=== PATIENT | female | born 1990 | race Caucasian/White ===

== ENCOUNTER → 2016-10-28 | Outpatient (REF) | payer OTHER ==
[~2016-10-28] MED LIST: ACET50TA PO; ANUS2.5C2 EXT; DOCU10ELUD PO; IBUP600T26 PO; MOM30SS PO; PRENTAB74 PO
== END ==
LOC: M SFHCCLAY 09:35
PROVIDERS: ATTEND Family Medicine
DX: Z72.51 High risk heterosexual behavior (principal); Z01.419 Encounter for gynecological examination (general) (routine) without abnormal findings

== ENCOUNTER → 2016-12-28 | Outpatient (REF) | payer MEDICAID, OTHER ==
[2017-01-02 14:10] LABS: BENZODIAZEPINES, URINE SCREEN Negative ng/mL (Cutoff=200); METHADONE, URINE SCREEN Negative ng/mL (Cutoff=300); pH, URINE 5.9 (4.5-8.9)
== END ==
LOC: M SFHCCLAY 13:10
PROVIDERS: ATTEND Family Medicine
DX: F90.0 Attention-deficit hyperactivity disorder, predominantly inattentive type (principal)

== ENCOUNTER → 2017-03-22 | Outpatient (CLI) | payer OTHER ==
--- NOTE | 2017-03-23 08:16 | REP ---
First trimester obstetric ultrasound for viability and dating: The bladder is adequately distended. There is an intrauterine gestational sac with a pole. The heart rate is 169 beats per minute. The pole crown-rump length is 2.4 cm corresponding to 9 weeks 1 day gestational age. The JEWEL is 10/24/2017. The right and left ovaries are unremarkable. There is no free fluid in the pelvis. No subchorionic hematoma is identified. Signed by Rustam Up MD 03/23/2017 08:08 A
== END ==
LOC: M RAD 17:58
PROVIDERS: ATTEND Nurse Practitioner Women's Health
DX: Z36.2 Encounter for other antenatal screening follow-up (principal)

== ENCOUNTER 2019-10-08 20:35 | Day surgery (SDC) | payer OTHER ==
[~2019-10-08] VITALS: Ht 170.2 cm; Wt 76.5 kg
[2019-10-08 20:32] VITALS: BP 140/80
[~2019-10-08 20:35] MED LIST changes: -ACET50TA PO; -DOCU10ELUD PO; +DOCU5LIQ PO; +LR 1,000 ML IV SCH; +MAPA500T17 PO
[2019-10-08] MEDS ORDERED: ADDE15CA3 PO (21:37)
[2019-10-08] MEDS ORDERED: LIDOCAINE 1% SDV 30ML VIAL As Ordered ONE (21:57)
[2019-10-08] MEDS ORDERED: BUPIVACAINE HCL 0.25% 30ML VIAL As Ordered ONE (21:57)
--- NOTE | 2019-10-08 22:08 | HPEPDOC ---
General Surgery H&P Date of Admission October 08, 2019 Attending Physician: ARTEM EPPS MD History and Physical CHIEF COMPLAINT: abdominal pain HISTORY OF PRESENT ILLNESS: Healthy 29 F transferred from [facility] where she presented this afternoon with sudden onset of right sided abdominal pain for 2 days. Pain began yesterday and has worsened today. Reports sharp, constant pain at the right lower quadrant area and painful urination. Not relieved with tylenol. LMP 3 weeks ago. Patient reports 1 loose stool this morning, denies fevers or chills, or sick contacts. ALLERGIES: Please see below. HOME MEDICATIONS: Please see below. PAST MEDICAL HISTORY: 1. ADHD PAST SURGICAL HISTORY: none PERSONAL/SOCIAL HISTORY: Denies smoking, alcohol use, or recreational drug use. REVIEW OF SYSTEMS: GENERAL: Denies chills, fatigue, fever, weight gain and weight loss. HEENT: Denies blurred vision and double vision. Denies ear symptoms. Denies hoarseness. NECK: Denies any neck pain. CARDIOVASCULAR: Denies chest pain and palpitations. MUSCULOSKELETAL: Denies arthralgias, back pain and thrombophlebitis. SKIN: Denies rash. NEUROLOGIC: Denies headache, stroke and transient ischemic attack. PSYCHIATRIC: reports hsitory of depression, ADHD on meds. ENDOCRINE: Denies thyroid disease. HEMATOLOGY/ONCOLOGY: Denies any bleeding or clotting disorder. HEART: Denies any chest pains, palpitations, paroxysmal dyspnea, orthopnea. PULMONARY: Denies chronic cough, dyspnea and wheezing. GASTROINTESTINAL: see HPI. GENITOURINARY: reports dysuria. ENDOCRINE: Denies polydipsia, polyphagia, polyuria, heat or cold intolerance. INFECTIOUS: Denies any recent upper respiratory tract infection, UTI, need for use of antibiotics. NUTRITION: reports fair appetite. PHYSICAL EXAMINATION: VITAL SIGNS: Please see below. GENERAL APPEARANCE: looks mildly uncomfortable. Awake, alert, oriented. HEENT: Normocephalic, atraumatic. [place] palpebral conjunctivae. Anicteric sclera e. Lips moist. CHEST: No chest wall abnormalities. Normal respiratory motion/effort. NECK: Supple. No thyromegaly. No lymphadenopathies. LUNGS: Lung sounds are clear to auscultation bilaterally. No wheezing appreciated. HEART: No chest wall abnormalities. Heart rate and rhythm are regular with no murmurs. ABDOMEN: soft abdomen, nondistended, no umbilical or groin herniations, no surgical scars, tender over right lower quadrant area, referred tenderness over left lower quadrant area, nontender at upper abdomen. SKIN: Warm, moist. EXTREMITIES: Extremities have no deformities. No edema identified. NEUROLOGICAL: awake, alert, oriented. ANCILLARIES: . LABORATORY DATA: Please see below. WBC 76.1 Hgb 13 Hct 39.6 plt 234 BUN 12 Cr 0.8 LFTs normal U/A 1+ LE, WBC none, RBC none B hcg negative MICROBIOLOGY: Please see below. IMAGING: CT abdomen and pelvis early acute appendicitis IMPRESSION AND PLAN: Acute Appendicitis Patient's clinical history, examination and workup consistent with acute appendicitis, appears noncomplicated on CT, no signs of generalized peritonitis or severe inflammatory response. She was counseled on the risks and benefits of appendectomy which should shorten her clinical course. She will be tested for COVID prior to bringing her down to the or per our protocol. Consent has been obtained. She received a dose of zosyn 3.375 gm IV at [facility]. Since t his seems uncomplicated appendicitis, I will maintain her on unasyn 3 gm iv perioperatively while awaiting availability of the OR. Vital Signs 98.2 86 112/82 99% rm air Home Medications Scheduled Dextroamphetamine/Amphetamine (Adderall Xr 15 mg Capsule) 15 Mg Cap.er.24h, 15 MG PO 5XW, (Reported) M-F Allergies Coded Allergies: No Known Allergies (Unverified , 10/08/19) A-FIB/CHADSVASC A-FIB History Current/History of A-Fib/PAF?: No Current PO Anticoag Therapy: No ARTEM EPPS MD October 08, 2019 21:27
[2019-10-08 22:27] VITALS: BP 130/66
[2019-10-08] MEDS ORDERED: ONDANSETRON 4MG/2ML VIAL As Ordered ONE (22:53)
[2019-10-08] MEDS ORDERED: dexameTHASONE 4 MG/ML 1ML VIAL (J1100 PER 1MG) As Ordered ONE (22:53)
[2019-10-08] MEDS ORDERED: LIDOCAINE 2% 100MG/5ML SDV (FOR ANES.) As Ordered ONE (22:53)
[2019-10-08] MEDS ORDERED: fentaNYL 100 MCG/2 ML INJECTION (J3010) As Ordered ONE ×2 (22:53→23:44)
[2019-10-08] MEDS ORDERED: MIDAZOLAM INJ 2MG/2ML VIAL (J2250 PER 1MG) As Ordered ONE (22:53)
[2019-10-08] MEDS ORDERED: ROCURONIUM BROMIDE 50 MG/5 ML VIAL As Ordered ONE (22:53)
[2019-10-08] MEDS ORDERED: propofoL 200 MG/20 ML VIAL As Ordered ONE (22:59)
[2019-10-08] MEDS ORDERED: UNASYN 1.5 GM VIAL As Ordered ONE (23:26)
[2019-10-08] MEDS ORDERED: ACETAMINOPHEN 1000MG 100ML IV BTL (OFIRMEV) (J0131 PER 10MG) As Ordered ONE (23:31)
[2019-10-08] MEDS ORDERED: KETOROLAC 60 MG/2 ML VIAL As Ordered ONE (23:37)
[2019-10-08] MEDS ORDERED: SUGAMMADEX SODIUM 500 MG/5 ML VIAL (BRIDION) As Ordered ONE (23:37)
[2019-10-09] VITALS (8 sets, daily range): BP systolic 105–140; BP diastolic 55–79
--- NOTE | 2019-10-09 00:13 | POST-OPPD ---
Postoperative Procedure Note Date Of Procedure: October 09, 2019 PREOPERATIVE DIAGNOSIS: Acute Appendicitis POSTOPERATIVE DIAGNOSIS: Acute Appendicitis FINDINGS: distended, mildly thickened appendix, congested, no perforation PROCEDURE: Laparoscopic Appendectomy SURGEON: Mario Presley MD VISE HAND: ANESTHESIA: General Anesthesia SPECIMENS: appendix ESTIMATED BLOOD LOSS: 10 mLs DRAINS: none COMPLICATIONS: none POSTOPERATIVE CONDITION: stable, extubated to PACU MARIO PRESLEY MD October 09, 2019 00:13
--- NOTE | 2019-10-09 00:13 | ROOPDOC ---
[facility] Report Of Operation Report of Operation DATE OF PROCEDURE: 10/08/19 PREOPERATIVE DIAGNOSIS: Acute Appendicitis POSTOPERATIVE DIAGNOSIS: Acute Appendicitis FINDINGS: distended, mildly thickened appendix, congested, no perforation PROCEDURE: Laparoscopic Appendectomy SURGEON: Mario Presley MD RADIOLOGY TRANSPORTER: ANESTHESIA: General Anesthesia SPECIMENS: appendix ESTIMATED BLOOD LOSS: 10 mLs DRAINS: none COMPLICATIONS: none POSTOPERATIVE CONDITION: stable, extubated to PACU DESCRIPTION OF PROCEDURE: Patient has been given a dose of Unasyn 3 g IV every 6 hours perioperatively while awaiting availability of the operating room. Patient was brought to the operating room, placed supine on the table. Sequential compression device placed for DVT prophylaxis. General endotracheal anesthesia started. The abdomen prepped and draped in usual sterile fashion. After a surgical timeout, we began our surgery Entry into the abdomen done through an incision just to the left of the top of the umbilicus. Veress needle inserted on a controlled fashion. Intra- abdominal placement confirmed with saline drop technique. CO2 insufflation started to a pressure of 15 mmHg. Using the same incision a 5 mm optical port was placed under direct vision of laparoscope. Insertion site was inspected for injury and none was found. She was placed on a Trendelenburg position the right side tilted to about 30 to allow for better visualization of the appendix. A 5 mm port was placed under direct vision at the suprapubic area. The umbilical port was exchanged for an 8 mm port. Another 5 mm port was placed over the left lower quadrant area. Operative findings: Minimal associated serous fluid noted in the pelvis just above the uterus. The appendix is noted to be mildly inflamed, thickened throughout its course was overall healthy in appearance with no signs of ischemia nor perforation. Minimal thickening of the mesoappendix. Minimal associated reactive thickening of the omentum nearby. No abscesses noted.. The appendix was located. This was grasped to pull the base of the appendix into view. The mesoappendix was divided using Harmonic scalpel down to the base. The base still appears minimally thickened and healthy in appearance. The terminal ileum coursesclose to the insertion of the appendix. Two PDS Endoloops were placed to ligate the appendix at its base then divided with a Harmonic Scalpel then the stump was cauterized. Stump appears healthy. Appendix was then delivered into an Endo Catch bag and retrieved through the umbilical port site. After re-insufflation the surgical site was inspected for hemostasis. Surrounding areas of the abdomen including the pelvis and perihepatic area were inspected for fluid collections or signs of injury. The abdomen was deflated. All ports removed. The umbilical fascial defect repaired with 0 Vicryl in a mattress fashion. All skin incisions closed with 4-0 Monocryl in a subcuticular fashion. Steri-Strips and gauze dressings then placed. Patient was promptly awakened, extubated and brought to recovery room in stable condition. MARIO PRESLEY MD October 09, 2019 00:13
[2019-10-09] MEDS ORDERED: KETOROLAC 30 MG/ML 1ML VIAL IV PRN (00:15)
[2019-10-09] MEDS ORDERED: PERCOCET 5MG/325MG TAB PO PRN ×2 (00:15→00:45)
[2019-10-09] MEDS ORDERED: MIDAZOLAM INJ 2MG/2ML VIAL (J2250 PER 1MG) As Ordered ONE (00:18)
[2019-10-09] MEDS ORDERED: fentaNYL 100 MCG/2 ML INJECTION (J3010) As Ordered ONE (00:34)
[2019-10-09] MEDS: fentaNYL 100 MCG/2 ML INJECTION (J3010) IV PRN ×4 (00:36→01:00)
[2019-10-09] MEDS ORDERED: ONDANSETRON 4MG/2ML VIAL IV PRN (00:45)
[2019-10-09] MEDS ORDERED: METOCLOPRAMIDE INJ 10MG/2ML VIAL (J2765 PER 1) IV PRN (00:45)
[2019-10-09] MEDS ORDERED: LR 1,000 ML IV SCH (00:45)
[2019-10-09] MEDS ORDERED: ONDANSETRON 4MG/2ML VIAL As Ordered ONE (00:56)
[2019-10-09] MEDS ORDERED: METOCLOPRAMIDE INJ 10MG/2ML VIAL (J2765 PER 1) As Ordered ONE (00:57)
[2019-10-09] MEDS ORDERED: oxyCODONE 5MG TAB As Ordered ONE (01:03)
[2019-10-09] MEDS: AMPICILLIN SOD/SULBACTAM SOD 3 GM in D5W MINI-BAG PLUS 100 ML IV SCH ×2 (01:56→05:47)
[2019-10-09] MEDS ORDERED: PERCOCET PO (10:13)
--- NOTE | 2019-10-09 10:16 | IPNPDOC ---
Text Note Date of Service The patient was seen on 10/09/19. NOTE POD0 Laparoscopic Appendectomy doing well, tolerated breakfast this am, denies nausea, severe abdominal discomfort VS stable; afebrile, nontachycardic On exam, looks very comfortable abdomen, soft nondistended, minimal tenderness around umbilical port site, other 2port sites dry. nontender RLQ area Plans: ok to d/c home no abx required follow up in 2 weeks VS,Fishbone, I+O VS, Fishbone, I+O Vital Signs Date Time Temp Pulse Resp B/P (MAP) Pulse Ox O2 Delivery O2 Flow Rate FiO2 10/09/19 08:46 18 Room Air 10/09/19 06:30 97.5 86 115/65 (82) 99 I&O- Last 24 Hours up to 6 AM 10/09/19 06:00 Intake Total 1420 ml Output Total 360 ml Balance 1060 ml ARTEM EPPS MD October 09, 2019 10:16
== END 2019-10-09 11:45 | disposition home or self-care (01) ==
LOC: M SDC 20:35 → M MSPAV 20:36 → M SDC 10-09 11:45
PROVIDERS: ATTEND Surgery
DX: K35.890 Other acute appendicitis without perforation or gangrene (principal); F90.9 Attention-deficit hyperactivity disorder, unspecified type; Z79.899 Other long term (current) drug therapy; Z11.59 Encounter for screening for other viral diseases
CPT/HCPCS: 44970; 88304; 96365; 96366; 96375; J0131; J1100; J1885; J2250; J2405; J2765; J3010; U0002

== ENCOUNTER → 2020-04-11 | Outpatient (REF) | payer OTHER ==
[~2020-04-11] MED LIST changes: +ADDE15CA3 PO; -LR 1,000 ML IV SCH; +PERCOCET PO
== END ==
LOC: M SFHCCLAY 04-10 14:28
PROVIDERS: ATTEND Nurse Practitioner Family
DX: Z01.419 Encounter for gynecological examination (general) (routine) without abnormal findings (principal)

== ENCOUNTER → 2022-02-05 | Outpatient (REF) | payer OTHER ==
[2022-02-05 18:15] LABS: BASO # 0.1 10^3/uL (0.0-0.2); BASO % 0.8 % (0.0-1.0); EOS # 0.2 10^3/uL (0.0-0.5); EOS % 2.9 % (0.0-3.0); HEMATOCRIT 40.9 % (36.0-47.0); HEMOGLOBIN 12.9 g/dl (12.0-15.5); LYMPH # 1.6 10^3/uL (1.5-5.0); LYMPH % 26.2 % (24.0-44.0); MEAN CORPUSCULAR HEMOGLOBIN 29.1 pg (27.0-33.0); MEAN CORPUSCULAR HGB CONC 31.5 g/dl (32.0-36.5); MEAN CORPUSCULAR VOLUME 92.3 fl (80.0-96.0); MONO # 0.5 10^3/uL (0.0-0.8); MONO % 7.8 % (2.0-8.0); NEUTROPHILS # 3.8 10^3/uL (1.5-8.5); PLATELET COUNT, AUTOMATED 248 10^3/uL (150-450); RED BLOOD COUNT 4.43 10^6/uL (4.00-5.40); WHITE BLOOD COUNT 6.2 10^3/uL (4.0-10.0)
[2022-02-05 18:49] LABS: ALBUMIN 3.6 GM/DL (3.2-5.2); ALT/SGPT 17 U/L (12-78); BILIRUBIN,TOTAL 0.3 MG/DL (0.2-1.0); BLOOD UREA NITROGEN 10 MG/DL (7-18); CALCIUM LEVEL 9.4 MG/DL (8.5-10.1); CARBON DIOXIDE LEVEL 30 MEQ/L (21-32); CHLORIDE LEVEL 103 MEQ/L (98-107); CREATININE FOR GFR 0.76 MG/DL (0.55-1.30); FREE T4 0.95 NG/DL (0.76-1.46); GLOMERULAR FILTRATION RATE > 60.0 (>60); GLUCOSE, FASTING 84 MG/DL (70-100); POTASSIUM SERUM 4.7 MEQ/L (3.5-5.1); SODIUM LEVEL 136 MEQ/L (136-145); THYROID STIMULATING HORMONE 0.518 uIU/ML (0.358-3.740); TOTAL PROTEIN 6.8 GM/DL (6.4-8.2)
== END ==
LOC: M SFHCCLAY 11:47
PROVIDERS: ATTEND Nurse Practitioner Family
DX: F90.0 Attention-deficit hyperactivity disorder, predominantly inattentive type (principal); R10.9 Unspecified abdominal pain